=== PATIENT | female | born 2000 | race Caucasian/White ===

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

== ENCOUNTER 2022-10-03 02:28 | Emergency (ER) | payer OTHER ==
[2022-10-03 02:49] VITALS: BP 152/85; PULSE 96
== END 2022-10-03 03:00 ==
LOC: MW.ED 02:28
DX: Z02.89 Encounter for other administrative examinations (principal); V89.2XXA Person injured in unspecified motor-vehicle accident, traffic, initial encounter; Y92.410 Unspecified street and highway as the place of occurrence of the external cause
CPT/HCPCS: 99283

== ENCOUNTER 2023-03-07 18:52 | Emergency (ER) | payer SELFPAY ==
[2023-03-07] MEDS ORDERED: Acetaminophen 325 MG Tab PO ONE (19:26)
[2023-03-07] MEDS ORDERED: Lidocaine 1% 5 ML VIAL INJECT ONE (19:26)
[2023-03-07] MEDS ORDERED: Ibuprofen 400 MG Tab PO ONE (19:26)
[2023-03-07] MEDS ORDERED: Diphtheria,Pertussis(Acell),Tetanus Vaccine 0.5 ML Syringe IM ONE (19:26)
[2023-03-07] MEDS ORDERED: Cephalexin 500 MG Cap PO ONE (19:26)
[2023-03-07] MEDS ORDERED: Ibuprofen 600 MG Tab PO ONE (20:10)
[2023-03-07] MEDS ORDERED: Bacitracin Oint 1 GM U/D Packet TOP ONE (21:05)
[2023-03-07 22:21] VITALS: BP 121/102; PULSE 66
== END 2023-03-07 21:20 | disposition home or self-care (01) ==
LOC: MW.ED 18:52
DX: S63.287A Dislocation of proximal interphalangeal joint of left little finger, initial encounter (principal); Z23 Encounter for immunization; W22.8XXA Striking against or struck by other objects, initial encounter; Y93.61 Activity, american tackle football; Y92.830 Public park as the place of occurrence of the external cause
CPT/HCPCS: 26770; 73140; 90471; 90715; 99283; A9270; 12001; J3490